=== PATIENT | female | born 1940 | race Caucasian/White ===

== ENCOUNTER 2016-05-31 12:37 | Emergency (ER) | payer MEDICARE, OTHER ==
[~2016-05-31] VITALS: Ht 144.8 cm; Wt 52.2 kg
[~2016-05-31 12:37] MED LIST: ABX; AMBIEN5 MG ORAL; ASPIR 8181 MG ORAL; ATORVASTATIN CA20 MG ORAL; CEPACOL SORE T1 EAC5 PO; DEXILANT60 MG ORAL; IBUPROFEN600 MG ORAL; NORCO 5-325 TA1 EAC1 ORAL; NORVASC5 MG ORAL; PREDNISONE20 MG ORAL; PROAIR HFA8.5 GM INH; PROTONIX20 MG ORAL; ROBITUSSIN COU118 M4 PO; SERTRALINE HCL50 MG ORAL; TRAMADOL HCL50 MG ORAL
[2016-05-31] MEDS ORDERED: NEXIUM40 MG ORAL (12:56)
[2016-05-31] MEDS ORDERED: PANTOPRAZOLE SO40 MG ORAL (12:56)
[2016-05-31] MEDS ORDERED: AMLODIPINE BESYL5 MG ORAL (12:56)
[2016-05-31] MEDS ORDERED: BENZONATATE200 MG ORAL (12:56)
[2016-05-31] MEDS ORDERED: PREDNISONE10 MG ORAL (12:56)
[2016-05-31] MEDS ORDERED: KETOCONAZOLE15 GM TOP (12:56)
[2016-05-31] MEDS ORDERED: [UNRECOGNIZED DRUG - OTHER] (12:56)
[2016-05-31 13:00] VITALS: BP 137/77
[2016-05-31] MEDS ORDERED: Albuterol ud Inhalation HHN ONE (13:15)
--- NOTE | 2016-05-31 13:40 | Emergency Room Report ---
History of Present Illness General Chief Complaint: Upper Respiratory Illness Source: Patient Present Illness HPI Patient presents with cough She states that she had been doing better her initial symptoms started just after February And now for the past 2 days She started coughing again she noticed yellow sputum production Denies any chest pain denies any back or flank pain she has had some increased nasal congestion as well Denies any pleurisy denies any abdominal pain denies any recent travel Allergies: Coded Allergies: CODEINE (Verified Adverse Reaction, Severe, nausea, 01/21/16) ERYTHROMYCIN BASE (Verified Adverse Reaction, Mild, NAUSEA, 01/21/16) Patient History Past Medical History: see triage record Pertinent Family History: none Last Menstrual Period: na Reviewed Nursing Documentation: PMH: Agreed, PSxH: Agreed Nursing Documentation-PMH Past Medical History: No History, Except For Hx Hypertension: Yes Hx Diabetes: Yes - PRE DIABETES NO MEDICINE TAKING Hx Gastrointestinal Problems: Yes - SMALL BOWEL BACTERIA OVERGROWTH,gerd Hx Neurological Problems: Yes - MCI Review of Systems All Other Systems: negative except mentioned in HPI Physical Exam Vital Signs Date Time Temp Pulse Resp B/P Pulse Ox O2 Delivery O2 Flow Rate FiO2 05/31/16 12:47 98.6 114 20 137/77 94 Room Air Sp02 EP Interpretation: reviewed, normal General Appearance: well appearing, no apparent distress Head: normocephalic, atraumatic Eyes: bilateral eye EOMI, bilateral eye PERRL ENT: hearing grossly normal, normal pharynx, TMs + canals normal, uvula midline Neck: full range of motion, supple, no meningismus, no bony tend Respiratory: lungs clear, normal breath sounds, no rhonchi, no respiratory distress, no retraction, no accessory muscle use Cardiovascular #1: normal peripheral pulses, regular rate, rhythm, no edema, no gallop, no JVD, no murmur Gastrointestinal: normal bowel sounds, non tender, soft, no mass, no organomegaly, non-distended, no guarding, no hernia, no pulsatile mass, no rebound Genitourinary: no CVA tenderness Musculoskeletal: back normal Neurologic: oriented x3, responsive, financial data analyst III-XII nml as tested, motor strength/ tone normal, sensory intact Psychiatric: mood/affect normal Skin: normal color, no rash, warm/dry, palpation normal Lymphatic: normal inspection, no adenopathy Medical Decision Making Diagnostic Impression: Primary Impression: Upper respiratory infection ER Course Patient had multiple differentials considered Had extensive workup including blood work EKG and chest x-ray obtained X-ray was negative patient's blood work is also appropriate Patient continues to saturate well At this time will have initial conservative outpatient trial Labs Test 05/31/16 13:35 White Blood Count 5.8 K/UL (4.8-10.8) Red Blood Count 4.26 M/UL (4.20-5.40) Hemoglobin 13.6 G/DL (12.0-16.0) Hematocrit 39.8 % (37.0-47.0) Mean Corpuscular Volume 93 FL (80-99) Mean Corpuscular Hemoglobin 31.9 PG (27.0-31.0) Mean Corpuscular Hemoglobin Concent 34.2 G/DL (32.0-36.0) Red Cell Distribution Width 11.6 % (11.6-14.8) Platelet Count 175 K/UL (150-450) Mean Platelet Volume 7.8 FL (6.5-10.1) Neutrophils (%) (Auto) 66.1 % (45.0-75.0) Lymphocytes (%) (Auto) 21.2 % (20.0-45.0) Monocytes (%) (Auto) 10.9 % (1.0-10.0) Eosinophils (%) (Auto) 0.6 % (0.0-3.0) Basophils (%) (Auto) 1.1 % (0.0-2.0) Sodium Level 140 mEQ/L (135-145) Potassium Level 3.5 mEQ/L (3.4-4.9) Chloride Level 98 mEQ/L (98-107) Carbon Dioxide Level 28 mEQ/L (20-30) Anion Gap 14 (5-15) Blood Urea Nitrogen 8 mg/dL (7-23) Creatinine 0.8 mg/dL (0.5-0.9) Estimat Glomerular Filtration Rate mL/min (>60) Glucose Level 106 mg/dL (74-106) Calcium Level 9.3 mg/dL (8.6-10.2) Total Bilirubin 0.3 mg/dL (0.0-1.2) Aspartate Amino Transf (AST/SGOT) 14 U/L (5-40) Alanine Aminotransferase (ALT/SGPT) 15 U/L (3-33) Alkaline Phosphatase 72 U/L (35-104) Total Creatine Kinase 38 U/L (26-140) Creatine Kinase MB < 1.5 ng/mL (< 3.8) Creatine Kinase MB Relative Index Troponin I < 0.30 ng/mL (<=0.30) Pro-B-Type Natriuretic Peptide 107 pg/mL (0-125) Total Protein 6.9 g/dL (6.6-8.7) Albumin 3.9 g/dL (3.5-5.2) Globulin 3.0 g/dL Albumin/Globulin Ratio 1.3 (1.0-2.7) Rhythm Strip Diag. Results EP Interpretation: yes Rate: 77 Rhythm: NSR, no PVC's, no ectopy Chest X-Ray Diagnostic Results EP Interpretation: Yes Findings: no consolidation, no effusion, no pneumothorax Number of Views: 1 Last Vital Signs Date Time Temp Pulse Resp B/P Pulse Ox O2 Delivery O2 Flow Rate FiO2 05/31/16 12:47 98.6 114 20 137/77 94 Room Air Status: improved Disposition: HOME, SELF-CARE Condition: Improved Scripts Albuterol Sulfate* (PROAIR HFA*) 8.5 Gm Hfa.aer.ad 2 PUFFS INH Q6H, #8.5 GM 0 Refills Prov: KANDI CARLTON D.O. 05/31/16 Albuterol Sulfate* (ALBUTEROL SULFATE MDI*) 8.5 Gm Hfa.aer.ad 2 PUFF INH Q4H Y for cough/wheezing, #1 EA 0 Refills Prov: KANDI CARLTON D.O. 05/31/16 Referrals: ROSEMARIE MEHTA M.D. (PCP) Additional Instructions: Patient is provided with the discharge instructions notified to follow up with primary doctor in the next 2-3 days otherwise return to the er with any worsening symptoms. KANDI CARLTON D.O. May 31, 2016 13:40
[2016-05-31 13:48] LABS: BASOPHILS % (AUTO) 1.1 % (0.0-2.0); EOSINOPHILS % (AUTO) 0.6 % (0.0-3.0); LYMPHOCYTES % (AUTO) 21.2 % (20.0-45.0); MEAN CORPUSCULAR HEMOGLOBIN 31.9 PG (27.0-31.0); MEAN CORPUSCULAR HGB CONC 34.2 G/DL (32.0-36.0); MEAN CORPUSCULAR VOLUME 93 FL (80-99); MEAN PLATELET VOLUME 7.8 FL (6.5-10.1); MONOCYTES % (AUTO) 10.9 % (1.0-10.0); NEUTROPHILS % (AUTO) 66.1 % (45.0-75.0); PLATELET COUNT 175 K/UL (150-450); RED BLOOD COUNT 4.26 M/UL (4.20-5.40); RED CELL DISTRIBUTION WIDTH 11.6 % (11.6-14.8); WHITE BLOOD COUNT 5.8 K/UL (4.8-10.8)
[2016-05-31 14:06] LABS: TROPONIN I < 0.30 ng/mL (<=0.30)
[2016-05-31 14:10] LABS: ALANINE AMINOTRANSFERASE 15 U/L (3-33); ALBUMIN/GLOBULIN RATIO 1.3 (1.0-2.7); ANION GAP 14 (5-15); ASPARTATE AMINO TRANSFERASE 14 U/L (5-40); CALCIUM 9.3 mg/dL (8.6-10.2); CARBON DIOXIDE 28 mEQ/L (20-30); CHLORIDE 98 mEQ/L (98-107); CREATININE 0.8 mg/dL (0.5-0.9); HEMOLYSIS 3; POTASSIUM 3.5 mEQ/L (3.4-4.9); SODIUM 140 mEQ/L (135-145); TOTAL PROTEIN 6.9 g/dL (6.6-8.7)
[2016-05-31 14:21] LABS: CKMB < 1.5 ng/mL (< 3.8)
[2016-05-31] MEDS ORDERED: ALBUTEROL SULF8.5 GM INH (14:27)
[2016-05-31] MEDS ORDERED: AZITHROMYCIN250 MG ORAL ×2 (14:27→14:51)
[2016-05-31] MEDS ORDERED: PROAIR HFA8.5 GM INH (14:51)
[2016-05-31 15:20] VITALS: BP 129/65
--- NOTE | 2016-06-01 10:07 | Diagnostic Imaging Report ---
Indication: SOB Technique: One view of the chest Comparison: 01/27/2016 Findings: Lungs and pleural spaces are clear. Heart size is normal. No significant change Impression: No acute process
--- NOTE | 2016-06-03 08:34 | Cardiology Report ---
APPROVED REPORT EKG Measurement Heart [id number] Normal sinus rhythm Possible Left atrial enlargement Nonspecific ST and T wave abnormality Abnormal ECG
== END 2016-05-31 15:25 | disposition home or self-care (01) ==
LOC: EMR 13:30
DX: J06.9 Acute upper respiratory infection, unspecified (principal); I10 Essential (primary) hypertension; E11.9 Type 2 diabetes mellitus without complications; K21.9 Gastro-esophageal reflux disease without esophagitis; Z88.5 Allergy status to narcotic agent; Z88.3 Allergy status to other anti-infective agents
CPT/HCPCS: 36415; 71010; 80053; 82550; 82553; 83880; 84484; 85025; 87040; 93005; 94640; 94664; 99284

== ENCOUNTER → 2016-07-21 | Outpatient (CLI) | payer MEDICARE, OTHER ==
[~2016-07-21] MED LIST changes: +ALBUTEROL SULF8.5 GM INH; +AMLODIPINE BESYL5 MG ORAL; +AZITHROMYCIN250 MG ORAL; +BENZONATATE200 MG ORAL; +KETOCONAZOLE15 GM TOP; +NEXIUM40 MG ORAL; +PANTOPRAZOLE SO40 MG ORAL; +PREDNISONE10 MG ORAL; +[UNRECOGNIZED DRUG - OTHER]
--- NOTE | 2016-07-21 10:04 | GI Progress Note ---
Assessment/Plan Problems: (1) 3 polyps colon (2) Small intestinal bacterial overgrowth ICD Codes: K63.89 - Other specified diseases of intestine SNOMED: 594892573 (3) Helicobacter pylori ab+ ICD Codes: R76.8 - Other specified abnormal immunological findings in serum SNOMED: 024157710 (4) Abdominal pain ICD Codes: R10.9 - Unspecified abdominal pain SNOMED: 07912934 (5) Abdominal bloating ICD Codes: R14.0 - Abdominal distension (gaseous) SNOMED: 821972459 Status: stable Status Narrative Seen with Dr. Marcum. Assessment/Plan off PPI RTC prn repeat colon x 2 years Subjective Subjective GERD positive Nausea Bloating s/p HP tx Objective T 97.1 BP 105/64 P 87 94 RA Denies weight loss General Appearance: no apparent distress, alert Cardiovascular: normal rate Respiratory/Chest: normal breath sounds, no respiratory distress Abdominal Exam: normal bowel sounds, non tender, soft Extremities: normal range of motion Objective #SIBO, s/p Xifaxan #H. Pylori positive >> s/p HP tx #s/p EGD/EUS, pancreatic cyst small #/s/p colon 2/16 >> 3 colonic polyps Mindy Godinez N.P. Jul 21, 2016 10:03
[2016-07-21 14:09] VITALS: BP 105/64
== END | disposition home or self-care (01) ==
LOC: PAN 09:15
DX: K63.5 Polyp of colon (principal); A04.8 Other specified bacterial intestinal infections; R76.8 Other specified abnormal immunological findings in serum; R10.9 Unspecified abdominal pain; R14.0 Abdominal distension (gaseous); R11.0 Nausea
CPT/HCPCS: 99211

== ENCOUNTER 2016-10-08 13:33 | Outpatient (CLI) | payer MEDICARE, OTHER ==
--- NOTE | 2016-10-08 14:02 | GI Progress Note ---
Assessment/Plan Problems: (1) Abdominal bloating ICD Codes: R14.0 - Abdominal distension (gaseous) SNOMED: 708532798 (2) Abdominal pain ICD Codes: R10.9 - Unspecified abdominal pain SNOMED: 88150751 Status: stable Status Narrative Seen with Dr. Marcum. Assessment/Plan trial Align dietary education for abdominal bloating repeat EUS in Feb to evaluate pancreatic cyst RTC x 3 months Subjective Subjective abdominal bloating gas Objective T 97.6 BP 136/77 P 77 100 RA WT 124 General Appearance: no apparent distress, alert Cardiovascular: normal rate Respiratory/Chest: normal breath sounds, no respiratory distress Abdominal Exam: normal bowel sounds, non tender, soft Extremities: normal range of motion Mindy Godinez N.P. October 08, 2016 14:01
[2016-10-08] MEDS ORDERED: BREO ELLIPTA 11 EACH IH (14:06)
[2016-10-08] MEDS ORDERED: SEROQUEL50 MG ORAL (14:06)
[2016-10-08] MEDS ORDERED: MONTELUKAST SOD10 MG ORAL (14:06)
[2016-10-08] MEDS ORDERED: ADVAIR HFA 115-12 GM INH (14:06)
[2016-10-08 14:14] VITALS: BP 136/77
== END 2016-10-08 14:00 | disposition home or self-care (01) ==
LOC: PAN 13:33
DX: R14.0 Abdominal distension (gaseous) (principal); R10.9 Unspecified abdominal pain
CPT/HCPCS: 99211

== ENCOUNTER 2017-01-11 13:15 | Outpatient (CLI) | payer MEDICARE, OTHER ==
[~2017-01-11 13:15] MED LIST changes: +ADVAIR HFA 115-12 GM INH; +BREO ELLIPTA 11 EACH IH; +MONTELUKAST SOD10 MG ORAL; +SEROQUEL50 MG ORAL
--- NOTE | 2017-01-12 09:27 | Diagnostic Imaging Report ---
Indication: COUGH Technique: Two views of the chest Comparison: 05/31/2016 Findings: There is equivocal minimal posterior costophrenic angle blunting, site indeterminate but possibly the left, on the lateral view. There is minimal atelectasis at the left lung base. Lungs are otherwise clear. Heart size is normal. The bones are unremarkable Impression: Left basilar atelectasis. Equivocal minimal left pleural fluid. No acute process otherwise
== END 2017-01-11 15:15 | disposition home or self-care (01) ==
LOC: RAD 13:15
DX: R05 Cough (principal); J98.11 Atelectasis
CPT/HCPCS: 71020

== ENCOUNTER 2017-01-14 13:43 | Inpatient (IN) | payer MEDICARE, OTHER ==
[~2017-01-14] VITALS: Ht 144.8 cm; Wt 56.7 kg
[2017-01-14 17:30] VITALS: BP 158/75
[2017-01-14] MEDS ORDERED: GABAPENTIN100 MG ORAL (17:34)
[2017-01-14] MEDS ORDERED: Albuterol 90mcg Inhaler 8gm INH PRN (18:00)
[2017-01-14 20:00] VITALS: BP 97/60
[2017-01-14] MEDS: DuoNeb 0.5-3(2.5)mg/3ml neb HHN SCH ×2 (20:51→23:50)
[2017-01-14] MEDS: Heparin 5000 units/ml inj SUBQ SCH (21:00)
[2017-01-14] MEDS: Atorvastatin 20mg tab ORAL SCH (21:17)
[2017-01-14] MEDS: Sertraline 50mg tab ORAL SCH (21:17)
[2017-01-14] MEDS: Zolpidem 5mg tab ORAL PRN (21:17)
[2017-01-14] MEDS: cefTRIAXone 1 GM in D5W 55 ML IVPB SCH (21:18)
[2017-01-14] MEDS: Solu-MEDROL 40mg Inj IVP SCH (21:18)
[2017-01-15] VITALS: BP 117/55
[2017-01-15] MEDS: DuoNeb 0.5-3(2.5)mg/3ml neb HHN SCH ×6 (03:00→23:29)
[2017-01-15 04:00] VITALS: BP 135/69
[2017-01-15] MEDS: Solu-MEDROL 40mg Inj IVP SCH ×3 (05:48→21:23)
[2017-01-15 08:00] VITALS: BP 137/68
[2017-01-15] MEDS: Heparin 5000 units/ml inj SUBQ SCH ×2 (08:54→21:26)
[2017-01-15] MEDS: Sertraline 50mg tab ORAL SCH ×2 (08:55→21:23)
[2017-01-15 10:17] LABS: BASOPHILS % (AUTO) 0.3 % (0.0-2.0); LYMPHOCYTES % (AUTO) 14.8 % (20.0-45.0); MEAN CORPUSCULAR HEMOGLOBIN 32.7 PG (27.0-31.0); MEAN CORPUSCULAR HGB CONC 33.7 G/DL (32.0-36.0); MEAN CORPUSCULAR VOLUME 97 FL (80-99); MEAN PLATELET VOLUME 7.3 FL (6.5-10.1); MONOCYTES % (AUTO) 1.1 % (1.0-10.0); NEUTROPHILS % (AUTO) 83.7 % (45.0-75.0); PLATELET COUNT 236 K/UL (150-450); RED BLOOD COUNT 4.04 M/UL (4.20-5.40); RED CELL DISTRIBUTION WIDTH 11.5 % (11.6-14.8); WHITE BLOOD COUNT 7.1 K/UL (4.8-10.8)
[2017-01-15 10:39] LABS: ALANINE AMINOTRANSFERASE 10 U/L (3-33); ALBUMIN/GLOBULIN RATIO 1.5 (1.0-2.7); ANION GAP 12 (5-15); ASPARTATE AMINO TRANSFERASE 11 U/L (5-40); CALCIUM 9.3 mg/dL (8.6-10.2); CARBON DIOXIDE 25 mEQ/L (20-30); CHLORIDE 101 mEQ/L (98-107); CREATININE 0.7 mg/dL (0.5-0.9); HEMOLYSIS 4; POTASSIUM 3.6 mEQ/L (3.4-4.9); SODIUM 138 mEQ/L (135-145); TOTAL PROTEIN 6.9 g/dL (6.6-8.7)
[2017-01-15] MEDS ORDERED: Tubing IV Secondary IV ONE (11:29)
[2017-01-15 12:00] VITALS: BP 113/64
[2017-01-15] MEDS: Guaifenesin/DM 10ml syrup ORAL PRN (12:49)
--- NOTE | 2017-01-15 14:32 | Diagnostic Imaging Report ---
Indication: ASTHMA Technique: No IV contrast, per referring physician request. Patient given oral contrast. Spiral acquisitions obtained through the chest, abdomen, and pelvis Multiplanar reconstructions were generated. Total dose length product 856 mGycm. CTDIvol(s) 14 mGy. Radiation dose was minimized using automated exposure control Comparison: Abdomen and pelvis compared to 06/13/2015. No comparison chest CT FINDINGS: Chest: There are trace bilateral pleural effusions. There is minimal posterior compressive atelectasis. The lungs are otherwise clear. No infiltrates, masses, nodules, or congestion. There is a small sliding-type hiatal hernia. Contrast is seen within the esophagus, indicating possible reflux, versus delayed esophageal emptying. The heart is upper limits of normal in size. There is minimal anterior wall pericardial thickening versus fluid. There are coronary artery calcifications. No mediastinal hilar mass or adenopathy. The included thyroid is unremarkable. No axillary or chest wall mass or adenopathy. Abdomen pelvis: There is colonic diverticulosis. No evidence of diverticulitis. The appendix is normal. No small bowel distention or small bowel wall thickening. Contrast is seen throughout the entirety of the small bowel and into into the colon as far as the hepatic flexure. Lack of IV contrast limits assessment of the solid organs. The gallbladder is surgically absent. Some calcifications are seen in the periphery of segment 7 of the liver. These are evident previously. No other focal hepatic abnormality. No biliary ductal dilatation. The previously demonstrated 8mm low attenuation pancreatic head lesion is barely evident on this non-infused exam. The spleen demonstrates multiple low-attenuation lesions, largest in the upper pole measuring 2.4 cm in diameter, also evident previously. The adrenals are unremarkable. Kidneys are suboptimally demonstrated due to some respiratory motion artifact. Left renal parapelvic cyst is again demonstrated. Other cysts demonstrated previously are less well-visualized on the current exam, due to both lack of IV contrast as well as some motion artifact. No retroperitoneal or mesenteric mass or adenopathy. The uterus is absent, presumably postsurgically. The bladder is unremarkable. No pelvic mass or adenopathy. Impression: Somewhat limited exam, due to respiratory motion artifact Trace bilateral pleural effusions. No acute thoracic process otherwise. Minimal pulmonary posterior compressive atelectasis Small sliding-type hiatal hernia No acute abdominal process Colonic diverticulosis. No evidence of diverticulitis Note that previously reported cystic pancreatic head lesion is only barely evident on this non-infused exam, not sufficiently well-seen for adequate comparison, given prior recommendation for followup. Consider followup contrast MRI if clinically indicated Multiple splenic low-attenuation lesions, consistent with cysts, also previously reported Left renal parapelvic cysts incidentally noted. Other previously demonstrated renal cysts are less well-visualized than previously Other findings as noted, including prior hysterectomy, prior cholecystectomy, right lobe hepatic calcifications The CT scanner at [facility] is accredited by the [employer] and the scans are performed using protocols designed to limit radiation exposure to as low as reasonably achievable to attain images of sufficient resolution adequate for diagnostic evaluation.
--- NOTE | 2017-01-15 15:45 | History and Physical Report ---
DATE OF ADMISSION: 01/14/2017 REASON FOR ADMISSION: Persistent fever, shortness of breath, and asthma. HISTORY OF PRESENT ILLNESS: This is a 76-year-old female, who had been in and out of the office with complaints of shortness of breath, cough, congestion, and low-grade fevers. The patient had been treated with antibiotics, steroids, and respiratory treatments with lack of improvement. The patient had recent laboratories, which appeared to be fairly normal. The patient, however, has not improved and the patient had been admitted for further workup, further intervention, and possible ID evaluation. The patient complains of urinary symptoms, abdominal symptoms, shortness of breath, and fevers as mentioned. The patient has had symptoms going for approximately 10 days, worsening in severity. PAST MEDICAL HISTORY: Notable for hypercholesterolemia, history of pancreatitis, history of diverticulosis, history of asthma, history of Helicobacter pylori, history of psychiatric disorder, and cognitive dysfunction. MEDICATIONS: Reviewed. ALLERGIES: Reviewed. SOCIAL HISTORY: The patient currently does not smoke or drink. She resides at [facility] and [facility]. She is disabled. REVIEW OF SYSTEMS: Otherwise negative with the exception of the above. PHYSICAL EXAMINATION: GENERAL: A well-developed female, somewhat frail and anxious. VITAL SIGNS: Temperature 97.2, pulse 62, respiratory rate 18, blood pressure 137/68, and saturations 94%. HEENT: Negative. Extraocular movements are grossly intact. Oropharynx is moist. There is no thrush. NECK: Supple. No adenopathy. LUNGS: Clear and symmetric. No rhonchi or wheezes. CARDIAC: Normal S1 and S2. Regular rate and rhythm without murmurs, rubs, or gallops. ABDOMEN: Soft, nontender, and nondistended. EXTREMITIES: No cyanosis, clubbing, or edema. NEUROLOGIC: Grossly nonfocal. LABORATORY DATA: Reviewed. MEDICATIONS: Reviewed. IMPRESSION: 1. Low-grade fever, possible asthma exacerbation, abnormal chest x-ray, possible occult infection. 2. Hypertension. 3. Psychiatric disorder. 4. Significant anxiety. RECOMMENDATION: Obtain body CT. Empiric antibiotics. Follow up cultures. IV Solu-Medrol. Respiratory care. Oxygen therapy. Hydration. Follow up clinically for change in interventions and ongoing recommendations. Help to evaluate and assess for any underlying physiological issues and if not, proceed with discharge planning. Eddi Fitzgerald M.D. DR: Mariluz JOB#: [id number] CC: NOBLE
[2017-01-15 16:00] VITALS: BP 99/52
[2017-01-15 20:00] VITALS: BP 101/59
[2017-01-15] MEDS: cefTRIAXone 1 GM in D5W 55 ML IVPB SCH (21:22)
[2017-01-15] MEDS: Atorvastatin 20mg tab ORAL SCH (21:24)
[2017-01-16] VITALS: BP 105/60
[2017-01-16] MEDS: Guaifenesin/DM 10ml syrup ORAL PRN ×3 (00:45→21:45)
[2017-01-16] MEDS: Zolpidem 5mg tab ORAL PRN ×2 (00:45→21:45)
[2017-01-16] MEDS: DuoNeb 0.5-3(2.5)mg/3ml neb HHN SCH ×6 (03:00→23:18)
[2017-01-16 04:00] VITALS: BP 106/57
[2017-01-16] MEDS: Solu-MEDROL 40mg Inj IVP SCH ×3 (05:59→21:45)
[2017-01-16] MEDS: Breo Ellipta 100/25mcg - 14 dose INH SCH (07:45)
[2017-01-16 08:15] VITALS: BP 105/50
--- NOTE | 2017-01-16 08:17 | General Progress Note ---
Assessment/Plan Assessment/Plan IMPRESSION: 1. asthma exacerbation, 2. Hypertension. 3. Psychiatric disorder. 4. Significant anxiety 5. cough PLAN care noted IV antibiotics respiratory care supportive care encourage cough oxygen therapy dc in am Subjective Allergies: Coded Allergies: CODEINE (Verified Adverse Reaction, Severe, nausea, 01/21/16) ERYTHROMYCIN BASE (Verified Adverse Reaction, Mild, NAUSEA, 01/21/16) Subjective care noted still with cough some congestion Objective Last 24 Hour Vital Signs Date Time Temp Pulse Resp B/P Pulse Ox O2 Delivery O2 Flow Rate FiO2 01/16/17 07:08 83 18 97 Room Air 21 01/16/17 06:59 21 01/16/17 06:58 74 16 92 Room Air 01/16/17 04:00 97.7 89 18 106/57 96 Room Air 01/16/17 03:23 Room Air 01/16/17 03:23 Room Air 01/16/17 00:00 98.9 84 16 105/60 96 Room Air 01/15/17 23:39 78 18 98 Room Air 21 01/15/17 23:29 21 01/15/17 23:29 75 18 96 Room Air 21 01/15/17 22:23 97.7 01/15/17 20:09 93 20 99 Room Air 21 01/15/17 20:00 97.8 86 18 101/59 96 Room Air 01/15/17 19:59 21 01/15/17 19:59 90 20 95 Room Air 21 01/15/17 16:00 97.7 85 18 99/52 92 Room Air 01/15/17 15:30 Room Air 21 01/15/17 15:30 Room Air 21 01/15/17 12:00 97.9 67 18 113/64 92 Room Air 01/15/17 08:55 62 137/68 Intake and Output 01/15/17 01/16/17 19:00 07:00 Intake Total 720 ml Balance 720 ml Intake Oral 720 ml # Voids 7 Laboratory Tests 01/15/17 09:40: White Blood Count 7.1, Red Blood Count 4.04L, Hemoglobin 13.2, Hematocrit 39.2, Mean Corpuscular Volume 97, Mean Corpuscular Hemoglobin 32.7H, Mean Corpuscular Hemoglobin Concent 33.7, Red Cell Distribution Width 11.5L, Platelet Count 236, Mean Platelet Volume 7.3, Neutrophils (%) (Auto) 83.7H, Lymphocytes (%) (Auto) 14.8L, Monocytes (%) (Auto) 1.1, Eosinophils (%) (Auto) 0.0, Basophils (%) (Auto ) 0.3, Sodium Level 138, Potassium Level 3.6, Chloride Level 101, Carbon Dioxide Level 25, Anion Gap 12, Blood Urea Nitrogen 12, Creatinine 0.7, Estimat Glomerular Filtration Rate , Glucose Level 173H, Calcium Level 9.3, Total Bilirubin 0.2, Aspartate Amino Transf (AST/SGOT) 11, Alanine Aminotransferase ( ALT/SGPT) 10, Alkaline Phosphatase 55, Total Protein 6.9, Albumin 4.2, Globulin 2.7, Albumin/Globulin Ratio 1.5 Height (Feet): 4 Height (Inches): 9.00 Weight (Pounds): 125 Objective GENERAL: A well-developed female, somewhat frail and anxious. HEENT: Negative. Extraocular movements are grossly intact. Oropharynx is moist. There is no thrush. NECK: Supple. No adenopathy. LUNGS: some rhonchi and wheezes. CARDIAC: Normal S1 and S2. Regular rate and rhythm without murmurs, rubs, or gallops. ABDOMEN: Soft, nontender, and nondistended. EXTREMITIES: No cyanosis, clubbing, or edema. NEUROLOGIC: Grossly nonfocal. . MIHIR NAIR Jan 16, 2017 08:17
[2017-01-16] MEDS: Heparin 5000 units/ml inj SUBQ SCH ×2 (09:07→21:47)
[2017-01-16] MEDS: Sertraline 50mg tab ORAL SCH ×2 (09:08→21:45)
[2017-01-16 11:55] VITALS: BP 101/48
[2017-01-16 15:46] VITALS: BP 105/54
[2017-01-16 20:00] VITALS: BP 103/57
[2017-01-16] MEDS: Atorvastatin 20mg tab ORAL SCH (21:45)
[2017-01-16] MEDS: cefTRIAXone 1 GM in D5W 55 ML IVPB SCH (21:45)
[2017-01-17] MEDS: DuoNeb 0.5-3(2.5)mg/3ml neb HHN SCH ×3 (03:26→11:35)
[2017-01-17 04:00] VITALS: BP 127/61
[2017-01-17] MEDS: Solu-MEDROL 40mg Inj IVP SCH (06:15)
[2017-01-17 08:00] VITALS: BP 102/58
--- NOTE | 2017-01-17 08:24 | General Progress Note ---
Assessment/Plan Assessment/Plan IMPRESSION: 1. asthma exacerbation, 2. Hypertension. 3. Psychiatric disorder. 4. Significant anxiety 5. cough PLAN care noted IV antibiotics- dc respiratory care supportive care encourage cough oxygen therapy dc today impression, plan, and exam edited and reviewed in detail care discussed with RN Subjective Allergies: Coded Allergies: CODEINE (Verified Adverse Reaction, Severe, nausea, 01/21/16) ERYTHROMYCIN BASE (Verified Adverse Reaction, Mild, NAUSEA, 01/21/16) Subjective care noted still with cough improved congestion Objective Last 24 Hour Vital Signs Date Time Temp Pulse Resp B/P Pulse Ox O2 Delivery O2 Flow Rate FiO2 01/17/17 07:57 79 18 99 Nasal Cannula 2.0 01/17/17 07:51 98 Nasal Cannula 2.0 01/17/17 07:51 Nasal Cannula 2.0 01/17/17 07:50 78 16 98 Room Air 01/17/17 04:00 97.5 94 20 127/61 93 Room Air 01/17/17 03:36 69 18 99 Nasal Cannula 2.0 01/17/17 03:25 28 01/17/17 03:25 60 14 99 Nasal Cannula 2.0 28 01/16/17 23:31 83 22 93 Nasal Cannula 2.0 28 01/16/17 23:16 80 16 98 Nasal Cannula 2.0 01/16/17 23:16 28 01/16/17 20:11 77 18 98 Room Air 2.0 01/16/17 20:04 71 18 94 Nasal Cannula 2.0 01/16/17 20:04 28 01/16/17 20:03 Nasal Cannula 2.0 01/16/17 20:03 94 Nasal Cannula 2.0 01/16/17 20:00 97.3 69 20 103/57 95 Room Air 01/16/17 15:46 97.8 82 20 105/54 93 Nasal Cannula 2.0 01/16/17 15:36 Nasal Cannula 2.0 01/16/17 15:35 Nasal Cannula 2.0 01/16/17 11:55 97.6 86 21 101/48 99 01/16/17 11:05 90 18 99 Nasal Cannula 2.0 01/16/17 10:56 01/16/17 10:55 86 18 92 Nasal Cannula 2.0 01/16/17 09:07 102 105/50 Intake and Output 01/16/17 01/17/17 19:00 07:00 Intake Total 1080 ml 955 ml Output Total 2 ml Balance 1078 ml 955 ml Intake Oral 1080 ml IV Total 955 ml Output Urine Total 2 ml # Voids 2 2 # Bowel Movements 1 Height (Feet): 4 Height (Inches): 9.00 Weight (Pounds): 125 Objective GENERAL: A well-developed female, somewhat frail and anxious. HEENT: Negative. Extraocular movements are grossly intact. Oropharynx is moist. There is no thrush. NECK: Supple. No adenopathy. LUNGS: some rhonchi and wheezes. CARDIAC: Normal S1 and S2. Regular rate and rhythm without murmurs, rubs, or gallops. ABDOMEN: Soft, nontender, and nondistended. EXTREMITIES: No cyanosis, clubbing, or edema. NEUROLOGIC: Grossly nonfocal. . MIHIR NAIR Jan 17, 2017 08:24
[2017-01-17] MEDS: Sertraline 50mg tab ORAL SCH (08:32)
[2017-01-17] MEDS: Heparin 5000 units/ml inj SUBQ SCH (08:35)
[2017-01-17] MEDS: Breo Ellipta 100/25mcg - 14 dose INH SCH (09:36)
[2017-01-17 12:04] VITALS: BP 126/67
--- NOTE | 2017-01-19 09:24 | Discharge Summary ---
Discharge Summary Hospital Course Date of Admission Jan 14, 2017 at 16:50 Date of Discharge Jan 17, 2017 at 14:45 Admitting Diagnosis HPI Carlee Nails is a 76 year old female who was admitted on Jan 14, 2017 at 16:50 for Fever Of Unkown Origin Hospital Course dc summary #[id number] Discharge Medications Continued Medications: Albuterol Sulfate* (Proair Hfa*) 8.5 Gm Hfa.aer.ad 2 PUFFS INH Q6H, #8.5 GM 0 Refills Amlodipine Besylate* (Amlodipine Besylate*) 5 Mg Tablet 5 MG ORAL DAILY, TAB Aspirin* (Aspir 81*) 81 Mg Tablet.dr 81 MG ORAL DAILY, TAB Atorvastatin Calcium* (Atorvastatin Calcium*) 20 Mg Tablet 10 MG ORAL BEDTIME, TAB Fluticasone/Vilanterol (Breo Ellipta 100-25 Mcg INH) 1 Each Blst.w.dev 1 EACH IH, EACH Gabapentin* (Gabapentin*) 100 Mg Capsule 100 MG ORAL THREE TIMES A DAY, CAP Quetiapine Fumarate (Seroquel) Unknown Strength Tablet Unknown Dose ORAL DAILY, #15 TAB 0 Refills Discharge Condition Upon Discharge: stable Discharge Disposition Patient was discharged to [facility] (01) Discharge Diagnoses: Discharge Instructions Discharge Instructions Special Instructions I have been assigned to complete a D/C Summary on this account. I was not involved in the patient management Marcelina Almonte NP (Vanchtein) Jan 19, 2017 09:24
--- NOTE | 2017-01-20 04:21 | Discharge Summary 2 SIG ---
DATE OF ADMISSION: 01/14/2017 DATE OF DISCHARGE: 01/17/2017 REASON FOR ADMISSION: 76-year-old female was sent from the office for evaluation due to the low-grade fever, cough, shortness of breath, and congestion. The patient was treated as outpatient with oral antibiotics, oral steroids, and respiratory treatment with lack of improvement. The patient was admitted for further workup. ADMITTING DIAGNOSES: 1. Possible asthma exacerbation, rule out occult infection. 2. Low-grade fever. 3. Hypertension. 4. Anxiety. 5. Psychiatric disorder. HOSPITAL STAY: The patient was admitted. Supplemental oxygen provided as needed to keep saturation above 92%. Pulmonary toilet was provided. Then patient was started on IV fluids. Empiric antibiotic were started. IV steroid regimen initiated. The patient undergone CT of the chest, abdomen, and pelvis, which essentially was unremarkable. It revealed trace bilateral pleural effusions. No acute thoracic process, otherwise. Minimal pulmonary posterior compressive atelectasis. Small sliding type hiatal hernia. No acute abdominal process. Colonic diverticulosis without evidence of diverticulitis. Multiple splenic low attenuation lesions consistent with cysts, previously reported. Left renal parapelvic cyst incidentally noted. Sputum culture was negative. No fever, no leukocytosis. Blood pressure was managed with calcium-channel norma, was stable. Aspirin and statin were continued. Seroquel was continued. Antitussive provided as needed. The patient clinically improved. The patient was stable for discharge to Board and Care DISCHARGE DIAGNOSES: 1. Asthma exacerbation 2. Hypertension, 3. Anxiety, 4. Psychiatric disorder 5. Cough DISCHARGE MEDICATIONS: See medication reconciliation list. DISCHARGE INSTRUCTIONS: The patient was discharged to Board and Care. Follow up with medical doctor at the facility. Eddi Fitzgerald M.D. I have been assigned to dictate discharge summary on this account and I was not involved in the patient's management. Marcelina Almonte (Vanchtein) NSammi DR: Prasad JOB#: [id number] CC: NOBLE
== END 2017-01-17 14:45 | disposition home or self-care (01) | DRG 203 ==
LOC: 4E 16:50
DX: J45.901 Unspecified asthma with (acute) exacerbation (principal); I10 Essential (primary) hypertension; F99 Mental disorder, not otherwise specified; F41.9 Anxiety disorder, unspecified; Z88.6 Allergy status to analgesic agent; Z88.1 Allergy status to other antibiotic agents
CPT/HCPCS: 36415; 71250; 74176; 80053; 85025; 87070; 87081; 87205; 94640; 94664; 94760; J7620

== ENCOUNTER 2017-01-22 08:24 | Outpatient (CLI) | payer MEDICARE, OTHER ==
[~2017-01-22 08:24] MED LIST changes: +GABAPENTIN100 MG ORAL
--- NOTE | 2017-01-22 16:15 | Diagnostic Imaging Report ---
Indication: Followup for tiny cystic nodule in the pancreatic head. Technique: MRI of the abdomen was performed in a 1.5 [employer] magnet. Pulse sequences obtained include coronal and axial T2 single shot fast spin echo breathhold and respiratory gated coronal T2 3-D M.R.C.P.; this data set was displayed in different projections or MIPs. In addition, multiple coronal oblique thin T2 weighted, fat saturated SE sequences obtained through the CBD. Axial T2 fast echo with fat saturation, axial 2-D fiesta. T1 gradient echo in and out of phase. Pre and post gadolinium T1 fat saturated lava and axial and coronal planes obtained. Comparison: MRI 06/13/15 Findings: There is no change with regard to a tiny cystic focus adjacent to the distal common bile duct between the main pancreatic duct and CBD. The cystic focus is about 5 mm in size and is best seen on T2-weighted images. There is no obvious enhancement of this focus although the post gadolinium sequences are significantly degraded due to motion. There is a left renal cyst again demonstrated unchanged. This is in the central part of the left kidney. There are other smaller parapelvic cysts within both kidneys. There are several splenic cysts present without obvious change. There is no free fluid. Trace bilateral pleural effusions are present. The CBD does not appear dilated. There is mild dilatation of the main pancreatic duct. Impression: 5 mm cystic focus adjacent to the distal part of the CBD unchanged from the prior examination. This may represent a small branch type IPMN. Trace bilateral pleural effusions. Cholecystectomy Bilateral renal cysts. Splenic cyst. Breathing motion artifact
== END 2017-01-22 10:24 | disposition home or self-care (01) ==
LOC: MRI 08:24
DX: R10.9 Unspecified abdominal pain (principal); D73.4 Cyst of spleen; N28.1 Cyst of kidney, acquired; Z90.49 Acquired absence of other specified parts of digestive tract; J90 Pleural effusion, not elsewhere classified
CPT/HCPCS: 74183; A9585

== ENCOUNTER 2017-02-02 08:54 | Outpatient (CLI) | payer MEDICARE, OTHER ==
[2017-02-02] MEDS ORDERED: XOLAIR150 MG SQ ×2 (09:14→09:16)
[2017-02-02 09:23] VITALS: BP 120/59
--- NOTE | 2017-02-02 10:23 | GI Progress Note ---
Assessment/Plan Problems: (1) Pancreatic lesion ICD Codes: K86.9 - Disease of pancreas, unspecified SNOMED: 9864057 (2) Abdominal bloating ICD Codes: R14.0 - Abdominal distension (gaseous) SNOMED: 233020145 (3) Abdominal pain ICD Codes: R10.9 - Unspecified abdominal pain SNOMED: 17653071 Status: stable Status Narrative Seen with Dr. Marcum. Assessment/Plan MRCP reviewed with patient >> 5 mm cystic focus adjacent to the distal part of the CBD unchanged from the prior examination. This may represent a small branch type IPMN. observe pulmonary status RTC x 1 month to schedule EUS. Subjective Subjective asthma exacerbation with SOB abdominal bloating/burping self defecated new asthma medication Xolair Objective Last 24 Hour Vital Signs Date Time Temp Pulse Resp B/P (MAP) Pulse Ox O2 Delivery O2 Flow Rate FiO2 02/02/17 09:23 97.9 89 20 120/59 99 General Appearance: no apparent distress, alert Cardiovascular: normal rate Respiratory/Chest: normal breath sounds, no respiratory distress Abdominal Exam: normal bowel sounds, non tender, soft Genitourinary/Rectal: normal rectal exam Extremities: normal range of motion, non-tender Mindy Godinez N.P. Feb 02, 2017 10:23
== END 2017-02-02 09:30 | disposition home or self-care (01) ==
LOC: PAN 08:54
DX: K86.9 Disease of pancreas, unspecified (principal); R14.0 Abdominal distension (gaseous); R10.9 Unspecified abdominal pain; J45.901 Unspecified asthma with (acute) exacerbation
CPT/HCPCS: 99211

== ENCOUNTER 2017-04-27 09:54 | Outpatient (CLI) | payer MEDICARE, OTHER ==
[~2017-04-27 09:54] MED LIST changes: +XOLAIR150 MG SQ
[2017-04-27 10:09] VITALS: BP 119/69
--- NOTE | 2017-04-27 10:49 | GI Progress Note ---
Assessment/Plan Problems: (1) Pancreatic lesion ICD Codes: K86.9 - Disease of pancreas, unspecified SNOMED: 0469275 (2) Abdominal bloating ICD Codes: R14.0 - Abdominal distension (gaseous) SNOMED: 605030249 (3) Pancreatitis ICD Codes: K85.9 - Acute pancreatitis, unspecified SNOMED: 65808001 Status: stable Status Narrative Seen with Dr. Marcum. Assessment/Plan repeat MRI to f/u on pancreatic cyst RTC after imaging studies will consider EUS if indicated The patient was seen and examined at bedside and all new and available data was reviewed in the patients chart. I agree with the above findings, impression and plan. (Patient seen earlier today. Signature stamp does not reflect patient encounter time.). - Gricelda Marcum MD Subjective Subjective abdominal bloating less COPD worse, has nebulizer QID prn and will start CPAP soon Objective Last 24 Hour Vital Signs Date Time Temp Pulse Resp B/P (MAP) Pulse Ox O2 Delivery O2 Flow Rate FiO2 04/27/17 10:09 97.4 84 18 119/69 93 General Appearance: WD/WN, no apparent distress, alert Cardiovascular: normal rate Respiratory/Chest: normal breath sounds, no respiratory distress Abdominal Exam: normal bowel sounds, non tender, soft Extremities: normal range of motion, non-tender Mindy Godinez N.P. Apr 27, 2017 10:49 SALOME MARCUM Apr 28, 2017 10:13
== END 2017-04-27 10:45 | disposition home or self-care (01) ==
LOC: PAN 09:54
DX: K86.9 Disease of pancreas, unspecified (principal); R14.0 Abdominal distension (gaseous); K85.90 Acute pancreatitis without necrosis or infection, unspecified; J44.9 Chronic obstructive pulmonary disease, unspecified
CPT/HCPCS: 99211

== ENCOUNTER 2017-05-10 07:32 | Outpatient (CLI) | payer MEDICARE, OTHER ==
[2017-05-10 07:54] LABS: BASOPHILS % (AUTO) 0.6 % (0.0-2.0); EOSINOPHILS % (AUTO) 1.4 % (0.0-3.0); LYMPHOCYTES % (AUTO) 35.3 % (20.0-45.0); MEAN CORPUSCULAR HEMOGLOBIN 32.3 PG (27.0-31.0); MEAN CORPUSCULAR HGB CONC 33.6 G/DL (32.0-36.0); MEAN CORPUSCULAR VOLUME 96 FL (80-99); MEAN PLATELET VOLUME 7.2 FL (6.5-10.1); MONOCYTES % (AUTO) 8.5 % (1.0-10.0); NEUTROPHILS % (AUTO) 54.2 % (45.0-75.0); PLATELET COUNT 275 K/UL (150-450); RED BLOOD COUNT 4.49 M/UL (4.20-5.40); RED CELL DISTRIBUTION WIDTH 11.8 % (11.6-14.8)
[2017-05-10 08:24] LABS: ALANINE AMINOTRANSFERASE 16 U/L (12-78); ALBUMIN/GLOBULIN RATIO 0.9 (1.0-2.7); AMYLASE 47 U/L (25-115); ANION GAP 3 mmol/L (5-15); ASPARTATE AMINO TRANSFERASE 13 U/L (15-37); CALCIUM 9.6 MG/DL (8.5-10.1); CARBON DIOXIDE 33 MMOL/L (21-32); CHLORIDE 105 MMOL/L (98-107); LIPASE 138 U/L (73-393); POTASSIUM 4.2 MMOL/L (3.5-5.1); SODIUM 141 MMOL/L (136-145); TOTAL PROTEIN 7.9 G/DL (6.4-8.2)
--- NOTE | 2017-05-10 14:51 | Diagnostic Imaging Report ---
Indication: History of pancreatic cystic lesions on prior imaging studies, for followup Technique: Axial single shot fast spin echo breath hold, coronal single shot fast spin-echo breath hold, axial T2 FRFSE fat-saturated, 2-D thick slab MRCP, axial 2-D FIESTA fat-saturated, axial 3-D dual echo breath-hold, precontrast axial and postcontrast axial and coronal water weighted axial LAVA FLEX images of the abdomen Comparison: 01/22/2017 and 06/13/2015 Findings: Exam is somewhat limited due to patient motion artifact. Again demonstrated are high T2 signal areas in the pancreatic head. The largest is ceasar and measuring up to 10 mm in diameter. The remainder probably represent areas of focal ectasia of the, bile ducts and pancreatic ducts Allowing for the motion artifact, these are probably unchanged in size from the previous exam, best appreciated on the axial T2-weighted images. No abnormal contrast enhancement is evident. As previously, the extrahepatic bile ducts are mildly ectatic, and there is a focal area of fusiform ectasia of the common bile duct measuring up to 8 mm in diameter. There also appears to be and apparent low insertion of an accessory right hepatic duct. This is not significantly changed from prior exam. Prominent but not frankly dilated pancreatic duct. The gallbladder is surgically absent. The liver is unremarkable. Multiple splenic cysts are unchanged. The adrenals are unremarkable. Bilateral renal parapelvic cysts are unchanged. There are again demonstrated bilateral pleural effusions, unchanged on the left, slightly larger on the right than previously. Again demonstrated is a left lower pole renal cortical cysts. Impression: Dominant cystic lesion within the pancreatic head, appears unchanged. Most likely either a small branch duct intraductal papillary mucinous neoplasm, versus focal ectasia of the common bile duct plus minus and adjacent accessory right hepatic duct and possibly an accessory pancreatic duct. A small choledochal there is a cyst is also a possibility Prior cholecystectomy Small bilateral pleural effusions, regular in the left. That on the right is increased in size from the previous study Other stable findings as described, including splenic, bilateral renal parapelvic, left renal cortical cysts
== END 2017-05-10 09:32 | disposition home or self-care (01) ==
LOC: MRI 07:32
DX: K86.9 Disease of pancreas, unspecified (principal); Z90.49 Acquired absence of other specified parts of digestive tract; J90 Pleural effusion, not elsewhere classified; N28.1 Cyst of kidney, acquired
CPT/HCPCS: 36415; 74183; 80053; 82150; 82378; 83690; 85025; A9585

== ENCOUNTER 2017-05-18 10:54 | Outpatient (CLI) | payer MEDICARE, OTHER ==
--- NOTE | 2017-05-18 10:51 | GI Progress Note ---
Assessment/Plan Problems: (1) Pancreatic lesion ICD Codes: K86.9 - Disease of pancreas, unspecified SNOMED: 6254952 (2) Abdominal bloating ICD Codes: R14.0 - Abdominal distension (gaseous) SNOMED: 322065045 (3) Pancreatitis ICD Codes: K85.9 - Acute pancreatitis, unspecified SNOMED: 04108714 (4) Abdominal pain ICD Codes: R10.9 - Unspecified abdominal pain SNOMED: 55236965 Status: stable Status Narrative Seen with Dr. Marcum. Assessment/Plan MRI reviewed >> no changes in pancreatic cystic lesion amylase / lipase negative RTC x 6 months / prn Subjective Gastrointestinal/Abdominal: Reports: no symptoms Objective T 97.8 BP 125/71 P 91 91 RA General Appearance: WD/WN, no apparent distress, alert Cardiovascular: normal rate Respiratory/Chest: normal breath sounds, no respiratory distress Abdominal Exam: normal bowel sounds, non tender, soft Extremities: normal range of motion, non-tender Mindy Godinez N.P. May 18, 2017 10:51
[2017-05-18 13:48] VITALS: BP 125/71
== END 2017-05-18 11:30 | disposition home or self-care (01) ==
LOC: PAN 10:54
DX: R14.0 Abdominal distension (gaseous) (principal); K86.9 Disease of pancreas, unspecified; K85.90 Acute pancreatitis without necrosis or infection, unspecified; R10.9 Unspecified abdominal pain
CPT/HCPCS: 99212

== ENCOUNTER 2018-01-13 13:13 | Outpatient (CLI) | payer MEDICARE, OTHER ==
[2018-01-13 13:33] VITALS: BP 134/62
--- NOTE | 2018-01-13 13:54 | GI Progress Note ---
Assessment/Plan Problems: (1) Weight loss ICD Codes: R63.4 - Abnormal weight loss SNOMED: 63497867, 090152830 (2) Abdominal pain ICD Codes: R10.9 - Unspecified abdominal pain SNOMED: 91120182 (3) Abdominal bloating ICD Codes: R14.0 - Abdominal distension (gaseous) SNOMED: 525927406 (4) Pancreatic lesion ICD Codes: K86.9 - Disease of pancreas, unspecified SNOMED: 9987938 Status: stable Status Narrative Discussed with Dr. Marcum. Assessment/Plan Needs EUS for pancreatic lesion, to be rescheduled due to family crisis. Patient to contact us. cont current POC will follow up with patient. monitor weight The patient was seen and examined at bedside and all new and available data was reviewed in the patients chart. I agree with the above findings, impression and plan. (Patient seen earlier today. Signature stamp does not reflect patient encounter time.). - Chuck Marcum MD Subjective Subjective abdominal pain, RLQ vs groin minimal abdominal bloating weight loss daughter is sick in the hospital with pulmonary HTN Objective Last 24 Hour Vital Signs Date Time Temp Pulse Resp B/P (MAP) Pulse Ox O2 Delivery O2 Flow Rate FiO2 01/13/18 13:33 82 20 134/62 97 General Appearance: WD/WN, no apparent distress, alert Cardiovascular: normal rate Respiratory/Chest: normal breath sounds, no respiratory distress Abdominal Exam: normal bowel sounds, non tender, soft Extremities: normal range of motion, non-tender Objective Weight loss 130lbs in jan 2017 119, current Cierra Godinez NP Jan 13, 2018 13:54
== END 2018-01-13 13:43 | disposition home or self-care (01) ==
LOC: PAN 13:13
DX: R63.4 Abnormal weight loss (principal); R10.9 Unspecified abdominal pain; R14.0 Abdominal distension (gaseous); K86.9 Disease of pancreas, unspecified
CPT/HCPCS: 99213